=== PATIENT | female | born 1980 | race Caucasian/White ===

== ENCOUNTER 2024-11-15 23:06 | Emergency (ER) | payer MEDICAID ==
[~2024-11-15] VITALS: Ht 167.6 cm; Wt 108.9 kg
[2024-11-15] MEDS ORDERED: NS 100ML 100 ML IV ONE (23:42)
[2024-11-15] MEDS ORDERED: TORADOL ONE (23:42)
[2024-11-15] MEDS ORDERED: NS 1000ML 1,000 ML ONE (23:42)
[2024-11-15] MEDS ORDERED: METHOCARBAMOL ONE (23:42)
[2024-11-15] MEDS: NS 1000ML 1,000 ML IV STA (23:45)
[2024-11-15] MEDS: TORADOL IV STA (23:46)
[2024-11-15] MEDS: METHOCARBAMOL IV ONE (23:47)
[2024-11-15 23:50] LABS: BASOPHIL # 0.1 10^3/uL (0.0-0.1); BASOPHIL % 0.6 % (0.1-1.2); EOSINOPHIL # 0.2 10^3/uL (0.0-0.2); EOSINOPHIL % 1.6 % (0.0-5.0); HEMATOCRIT(ML) 43.4 % (36.0-46.0); IG % 0.10 % (0.00-0.50); LYMPHOCYTES # 3.15 10^3/uL1 (1.0-4.8); LYMPHOCYTES % 32.8 % (24.0-44.0); MEAN CORP HGB 27.4 pg (26-34); MEAN CORP HGB CONCENTRATION 32.5 g/dL (33-36.5); MEAN CORP VOLUME 84.4 fL (78-100); MONOCYTES # 0.7 10^3/uL (0.3-0.8); MONOCYTES % 6.8 % (5.0-12.0); NEUTROPHIL # 5.6 10^3/uL (1.8-7.7); NEUTROPHILS % 58.1 % (41.0-85.0); RED BLOOD CELL 5.14 10^6/uL (4.00-5.20); RED CELL DISTRIBUTION WIDTH 13.3 % (11.5-14.5); WHITE BLOOD CELL 9.6 10^3/uL (4.5-11.0)
[2024-11-15] MEDS ORDERED: ZOFRAN ONE (23:56)
[2024-11-15 23:58] VITALS: BP 161/120; PULSE 102; RESP 20; TEMP 98.7; O2SAT 98
[2024-11-16] MEDS: ZOFRAN IV STA (00:02)
[2024-11-16 00:14] LABS: ALANINE AMINOTRANSFERASE(ML) 54 U/L (12-78); ALBUMIN(ML) 4.3 g/dL (3.4-5.0); CREATININE SERUM 0.87 mg/dL (0.59-1.40); EST GFR, NON-AA 71.4 (>/=60); TROPONIN I HIGH SENSITIVITY < 4 ng/L (0-50)
[2024-11-16] MEDS ORDERED: COMPAZINE ONE (01:03)
[2024-11-16] MEDS: COMPAZINE IV STA (01:13)
[2024-11-16] MEDS ORDERED: MORPHINE SULFATE ONE (01:14)
[2024-11-16] MEDS ORDERED: METH-622 PO (01:15)
[2024-11-16] MEDS ORDERED: ETOD-80 PO (01:15)
[2024-11-16] MEDS: MORPHINE SULFATE IV STA (01:20)
[2024-11-16 01:22] VITALS: BP 116/79; PULSE 94; RESP 20; TEMP 98.7; O2SAT 98
== END 2024-11-16 01:22 | disposition home or self-care (01) ==
LOC: ER 23:06
DX: R00.2 Palpitations (principal); M54.9 Dorsalgia, unspecified; F12.90 Cannabis use, unspecified, uncomplicated; Z88.0 Allergy status to penicillin; Z90.49 Acquired absence of other specified parts of digestive tract; Z98.890 Other specified postprocedural states
CPT/HCPCS: 99285; 72192; 96374; 96361; 71045; 96375 ×2; 72131; 80053; 85025; 36415; 84484; 93005; J1885; J7030; J2800; J2405; J2270; J0780